=== PATIENT | female | born 1990 | race Caucasian/White ===

== ENCOUNTER 2017-02-09 10:59 | Emergency (ER) | payer BC, MEDICAID, OTHER ==
[~2017-02-09] VITALS: Ht 167.6 cm; Wt 130.0 kg
[2017-02-09 11:01] VITALS: BP 107/76
== END 2017-02-09 13:02 | disposition home or self-care (01) ==
LOC: ED 12:56
DX: S93.492A Sprain of other ligament of left ankle, initial encounter (principal); W19.XXXA Unspecified fall, initial encounter; Y93.89 Activity, other specified; Y92.009 Unspecified place in unspecified non-institutional (private) residence as the place of occurrence of the external cause; Y99.8 Other external cause status
CPT/HCPCS: 29515